=== PATIENT | female | born 1945 | race Caucasian/White ===

== ENCOUNTER 2018-08-29 09:28 | Emergency (ER) | payer OTHER, MEDICAID ==
[~2018-08-29] VITALS: Ht 162.6 cm; Wt 72.6 kg
[2018-08-29 09:40] VITALS: Ht 162.6 cm; Wt 72.6 kg
[2018-08-29 11:59] VITALS: BP 140/90
== END 2018-08-29 12:05 | disposition home or self-care (01) ==
LOC: ED 09:28
DX: S20.212A Contusion of left front wall of thorax, initial encounter (principal); S09.8XXA Other specified injuries of head, initial encounter; I10 Essential (primary) hypertension; E11.9 Type 2 diabetes mellitus without complications; E78.00 Pure hypercholesterolemia, unspecified; E03.9 Hypothyroidism, unspecified; F32.9 Major depressive disorder, single episode, unspecified; K21.9 Gastro-esophageal reflux disease without esophagitis; M19.90 Unspecified osteoarthritis, unspecified site; W01.0XXA Fall on same level from slipping, tripping and stumbling without subsequent striking against object, initial encounter; Y93.89 Activity, other specified; Y92.89 Other specified places as the place of occurrence of the external cause; Y99.8 Other external cause status

== ENCOUNTER 2019-09-13 10:47 | Emergency (ER) | payer OTHER, MEDICAID ==
[~2019-09-13] VITALS: Ht 162.6 cm; Wt 68.0 kg
[2019-09-13 10:52] VITALS: BP 124/79; Ht 162.6 cm; Wt 68.0 kg
== END 2019-09-13 12:58 | disposition home or self-care (01) ==
LOC: ED 10:47
DX: S70.02XA Contusion of left hip, initial encounter (principal); S40.012A Contusion of left shoulder, initial encounter; S50.312A Abrasion of left elbow, initial encounter; M54.5 Low back pain; I10 Essential (primary) hypertension; E11.9 Type 2 diabetes mellitus without complications; E78.00 Pure hypercholesterolemia, unspecified; E03.9 Hypothyroidism, unspecified; M19.90 Unspecified osteoarthritis, unspecified site; K21.9 Gastro-esophageal reflux disease without esophagitis; Z87.19 Personal history of other diseases of the digestive system; W01.0XXA Fall on same level from slipping, tripping and stumbling without subsequent striking against object, initial encounter; Y93.89 Activity, other specified; Y92.89 Other specified places as the place of occurrence of the external cause; Y99.8 Other external cause status